=== PATIENT | male | born 1945 | race African-American/Black ===

== ENCOUNTER → 2018-03-17 | Outpatient (CLI) | payer OTHER ==
[~2018-03-17] VITALS: Ht 188 cm; Wt 109.3 kg
[~2018-03-17] MED LIST: ALLOPURINOL 30300 M1 PO; ATORVASTATIN CA40 MG PO; AVAPRO PO; COREG PO; COUMADIN; COZAAR100 MG PO; K-DUR10 ME1 PO; LASIX PO; ZOCOR40 MG PO
[2018-03-17 10:55] VITALS: BP 144/78
[2018-03-17 11:04] LABS: HEMATOCRIT 31.7 % (42.0-52.0); HEMOGLOBIN 10.4 gm/dL (14.0-18.0); MCH 31.3 pg (26.0-34.0); MCHC 32.8 g/dL (28.0-37.0); MCV 95.3 fL (80.0-100.0); RBC 3.33 mil/uL (4.50-6.00); RDW-CV 15.2 % (10.5-14.5); WBC 8.1 thou/uL (4.0-11.0)
[2018-03-17 11:14] LABS: ANION GAP 9 mmol/L (7-16); APTT 36.4 Seconds (25.0-31.3); BUN 11 mg/dL (7-18); CALCIUM 8.7 mg/dL (8.5-10.1); CHLORIDE 104 mmol/L (98-107); CO2 27 mmol/L (21-32); CREATININE 1.1 mg/dL (0.6-1.3); GLUCOSE 122 mg/dL (70-99); INR 1.9; POTASSIUM 3.8 mmol/L (3.5-5.1); PROTIME 18.1 Seconds (9.20-11.50); SODIUM 140 mmol/L (136-145)
[2018-03-17 11:18] LABS: ALBUMIN 3.6 g/dL (3.4-5.0); ALKALINE PHOSPHATASE 75 U/L (46-116); CHOLESTEROL 112 mg/dL (<200); HDL CHOLESTEROL 44 mg/dL (>40); LDL CHOLESTEROL 54 mg/dL (<100); SGOT 15 U/L (15-37); SGPT 22 U/L (30-65); TC:HDL 2.5 Ratio (Not establshd); TOTAL BILIRUBIN 1.1 mg/dL (<0.1-1.0); TOTAL PROTEIN 7.4 g/dL (6.4-8.2); TRIGLYCERIDE 74 mg/dL (<150); VLDL 15 mg/dL (<40)
[2018-03-17 11:22] LABS: SERUM ASSESSMENT Clear
[2018-03-17 14:27] VITALS: BP 156/86
[2018-03-17 14:47] VITALS: BP 162/87
[2018-03-17 15:12] VITALS: BP 163/79
--- NOTE | 2018-03-17 15:36 | EKG ---
[place] [address] ELECTROCARDIOGRAM REPORT Name: DENI PRADHAN Room: [facility]#: [id number] Admission: 03/17/18 Attend Phys: Jaime Clifford MD Discharge: Date of : 45 Report #: [id number] THIS REPORT FOR: //name// [facility] Test Date: 2018-03-17 Test Time: 11:06:03 Pat Name: DENI PRADHAN Department: Room: Gender: M Infant Childcare Provider: : 1945 Requested By: Sin Jenkins Order Number: [id number] Cooper MD: Sin Jenkins Measurements Intervals [place] Rate: 72 P: 49 CA: 150 QRS: 162 QRSD: 159 T: -33 QT: 457 QTc: 501 Interpretive Statements Atrial-sensed ventricular-paced rhythm No further analysis attempted due to paced rhythm No previous ECG available for comparison Electronically Signed On 03-17-2018 15:36:05 CDT by Sin Jenkins [email or web address] <ELECTRONICALLY SIGNED> By: Sin Jenkins MD, [facility] 03/17/18 1536 1106 [id number] Sin Jenkins MD, FACC /EPI
--- NOTE | 2018-04-07 14:29 | CARD ---
[address] [address] CARDIAC CATH REPORT Name: DENI PRADHAN [facility] [place]#: [id number] Admission: 03/17/18 Attend Phys: Jaime Clifford MD Discharge: Date of : 45 Report #: [id number] THIS REPORT FOR: //name// APPROVED REPORT Study performed: 03/17/2018 12:21:00 Patient Status: Out-Patient Room #: Exam: ICD generator change Indications: ICD generator at elective replacement The patient is a 72 year-old male with a history of generator at elective replacement. Implanted Devices: [employer] Itrevias 7 HFT DF1, model #767904, serial #[id number] biventricular ICD pacing generator. Explanted Devices: [employer] N119 Cognis 100D, serial #[id number] biventricular ICD pacing generator. Procedure After informed consent was obtained the area of the left chest was prepped and draped in sterile fashion. Local anesthesia was achieved with 1% lidocaine. Next after an initial incision was made over the existing generator the ICD pulse generator was Using electrocautery and blunt dissection. The RV, RA, LV and pacing defibrillator leads were removed from the existing generator. The device pocket was flushed with antibiotic solution. The new biventricular pacing generator was attached to the atrial, right ventricular and left ventricular leads as well as defibrillator leads. The pulse generator and redundant lead were placed within the device pocket. The deep tissues were closed utilizing interrupted stitches of 2-0 Vicryl. The skin incision was then closed with a single subcuticular stitch of 4-0 Vicryl. Several Steri-Strips were placed across the incision. A sterile Telfa pad dressing was then covered with a Tegaderm. The patient tolerated the procedure well without complication. Findings There was no underlying ventricular sensing. The sensed P-wave was 2.40 mV. RV pacing threshold was 1.3 V at 0.40 ms. LV pacing threshold was 1.90 V at 1.00 ms. Right atrial pacing threshold was 0.9 V at 0.40 ms. RV pacing impedance was 419 ohms. LV pacing impedance was 463 ohms. RA pacing impedance was [address] [place] [address] CARDIAC CATH REPORT Name: DENI PRADHAN [id number] Admission: 03/17/18 Attend Phys: Jaime Clifford MD Discharge: Date of : 45 Report #: [id number] VF detection rate was 222 bpm. Slow VT detection rate 154 bpm. Fast VT detection rate 188 bpm. VF therapies anti-tach pacing times one followed by 40 J shock 8. Slow VT therapies monitor only. Fast VT therapies anti-tach pacing 6 followed by 40 J shock times a day. Conclusion 1. Biventricular ICD generator at elective replacement. 2. Successful biventricular ICD generator replacement. 3. RV, LV, RA and defibrillator leads functioning normally. Recommendations 1. Follow-up site check in one week. <ELECTRONICALLY SIGNED> By: Sin Jenkins MD, [facility] 04/07/18 1429 1429 1429Michaeashlee Jenkins MD, [facility] /INF
--- NOTE | 2018-04-22 08:30 | H ---
[place] [address] HISTORY AND PHYSICAL Name: DENI PRADHAN Room: [facility].#: [id number] Admission: 03/17/18 Attend Phys: Jaime Clifford MD Discharge: Date of : 45 Report #: [id number] THIS REPORT FOR: //name// CC: Jaime Clifford MD [facility] Jeet Erazo MD DATE OF SERVICE: 04/21/2018 INDICATION: Admission for ICD generator change. HISTORY OF PRESENT ILLNESS: The patient is a very pleasant 72-year-old gentleman with history of nonischemic cardiomyopathy and ICD placement for primary prevention. By interrogation, his ICD generator has reached elective replacement. He is being brought in to the hospital for elective generator replacement. Presently, he is without cardiac complaint. PAST MEDICAL HISTORY: 1. Nonischemic cardiomyopathy. 2. Nonocclusive coronary artery disease. 3. Status post ICD placement for primary prevention. 4. Paroxysmal atrial fibrillation. 5. Chronic systolic heart failure. PAST SURGICAL HISTORY: Cardiac catheterization in 2005 and 2010. FAMILY HISTORY: The patient's mother had hypertension and heart disease. The patient's maternal grandmother had heart attack. SOCIAL HISTORY: The patient is a 1 pack a day smoker. He drinks alcohol rarely. REVIEW OF SYSTEMS: A 14-point review of systems is positive for dyspnea on exertion, cough and otherwise unremarkable. PHYSICAL EXAMINATION: VITAL SIGNS: Stable. Blood pressure 118/72, heart rate 70. GENERAL: This is a pleasant gentleman, in no distress. Mood and affect appropriate. HEENT: Extraocular muscles intact. Mucous membranes moist. NECK: No jugular venous distention. There are no carotid bruits. CHEST: Reveals clear lung gutierrez. CARDIAC: Reveals a regular rhythm with normal rate and no murmur. ABDOMEN: Reveals normal bowel sounds. The abdomen is soft and nontender. SKIN: Shows no rashes. Skin [place] [address] HISTORY AND PHYSICAL Name: DENI PRADHAN Room: [facility]#: [id number] Admission: 03/17/18 Attend Phys: Jaime Clifford MD Discharge: Date of : 45 Report #: [id number] EXTREMITIES: Show no clubbing, cyanosis or edema. NEUROLOGIC: Alert and awake. Cranial nerves 2-12 intact. PSYCHIATRIC: Normal mood and affect. IMPRESSION: 1. Nonischemic cardiomyopathy. 2. Status post implantable cardioverter-defibrillator placement for primary prevention. 3. Implantable cardioverter-defibrillator generator at elective replacement. The patient is being admitted for implantable cardioverter-defibrillator generator replacement. <ELECTRONICALLY SIGNED> By: Sin Jenkins MD, [facility] 04/22/18 0830 1835 2036Shaniko Ashish Jenkins MD, FACC /nt
== END | disposition home or self-care (01) ==
LOC: M.CL 10:10
PROVIDERS: Internal Medicine Cardiovascular Disease
DX: Z45.02 Encounter for adjustment and management of automatic implantable cardiac defibrillator (principal); I10 Essential (primary) hypertension; E78.5 Hyperlipidemia, unspecified; F17.210 Nicotine dependence, cigarettes, uncomplicated; I42.9 Cardiomyopathy, unspecified; M10.9 Gout, unspecified; I48.91 Unspecified atrial fibrillation; Z98.890 Other specified postprocedural states; Z79.01 Long term (current) use of anticoagulants; Z79.899 Other long term (current) drug therapy